=== PATIENT | male | born 1990 | race African-American/Black ===

== ENCOUNTER 2022-07-11 22:09 | Emergency (ER) | payer MEDICAID ==
[~2022-07-11] VITALS: Ht 177.8 cm; Wt 68.0 kg
[2022-07-11 22:39] VITALS: BP 135/82
[2022-07-12] MEDS ORDERED: LIDOCAINE HCL/PF 1% 10 MG/ML 5ML VIAL INFIL ONE (03:30)
[2022-07-12] MEDS ORDERED: BACITRACIN ZINC OINT UDPKT TOP ONE (03:30)
== END 2022-07-12 04:45 | disposition home or self-care (01) ==
LOC: ER 22:09
DX: S01.511A Laceration without foreign body of lip, initial encounter (principal); X58.XXXA Exposure to other specified factors, initial encounter; Y93.89 Activity, other specified; Y92.89 Other specified places as the place of occurrence of the external cause; Y99.8 Other external cause status
CPT/HCPCS: 12011; 99282; J3490; Z7610